=== PATIENT | female | born 1980 | race Caucasian/White ===

== ENCOUNTER 2017-09-16 14:38 | Emergency (ER) | payer BC ==
[~2017-09-16] VITALS: Ht 172.7 cm; Wt 71.0 kg
[2017-09-16 14:45] VITALS: TEMP 36.9; Ht 172.7 cm; Wt 71.0 kg
[2017-09-16 15:18] VITALS: BP 136/76; PULSE 68; O2SAT 100
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
== END 2017-09-16 15:10 | disposition home or self-care (01) ==
LOC: C.EDB 14:39 → C.EDD 15:10
DX: S10.11XA Abrasion of throat, initial encounter (principal); X58.XXXA Exposure to other specified factors, initial encounter; Y93.89 Activity, other specified